=== PATIENT | male | born 1970 | race Caucasian/White ===

== ENCOUNTER 2016-12-15 21:57 | Emergency (ER) | payer MEDICARE, MEDICAID ==
[2016-12-15] MEDS ORDERED: oxyCODONE HCL/ACETAMINOPHEN 1 TAB TABLET PO ONE (22:40)
--- NOTE | 2016-12-15 22:41 | ERNOTE ---
Allergy Symptoms - ER Presenting Symptoms: skin rash, itching Time Seen by Provider: 12/15/16 22:30 Source: patient, snf records Immunizations: IMMUNIZATION HX Immunizations Up to Date Yes History of Influenza Vaccine More Information Required Hx Pneumococcal Vaccination More Information Required Allergies/Adverse Reactions: Allergies adhesive tape Allergy (Verified 02/24/16 06:26) carbamazepine [From Tegretol] Allergy (Verified 02/24/16 06:26) cephalexin monohydrate [From Keflex] Allergy (Verified 02/24/16 06:26) codeine Allergy (Verified 02/24/16 06:26) meperidine HCl [From Demerol] Allergy (Verified 02/24/16 06:26) shrimp Allergy (Verified 02/24/16 06:26) tape Allergy (Uncoded 02/24/16 06:26) Home Medications: HOME MEDICATIONS Albuterol Sulfate [Albuterol Sulfate 2.5 MG/0.5ML] 1 vial NEB Q1H PRN 02/03/16 [ Last Taken Unknown] Baclofen 20 mg PO TID 02/03/16 [Last Taken Unknown] Bupropion HCl [Wellbutrin Xl] 300 mg PO QAM 02/03/16 [Last Taken Unknown] Carvedilol [Coreg] 25 mg PO BID 02/03/16 [Last Taken Unknown] Chlorhexidine Gluconate [Chlorhexidine Gluconate 0.12%] 5 ml MM BID 02/03/16 [ Last Taken Unknown] Cyanocobalamin [Vitamin B-12] 2,000 mcg PO DAILY 02/03/16 [Last Taken Unknown] Docusate Sodium [Doc-Q-Lace] 100 mg PO BID 02/03/16 [Last Taken Unknown] Ferrous Sulfate 325 mg PO TID 02/03/16 [Last Taken Unknown] Finasteride [Proscar] 5 mg PO HS 02/03/16 [Last Taken Unknown] Furosemide [Lasix] 40 mg PO DAILY 02/03/16 [Last Taken Unknown] Lamotrigine [Lamictal Xr] 25 mg PO DAILY 02/03/16 [Last Taken Unknown] Lamotrigine [Lamictal Xr] 200 mg PO DAILY 02/03/16 [Last Taken Unknown] Levothyroxine Sodium [Synthroid] 50 mcg PO DAILY 02/03/16 [Last Taken Unknown] Lisinopril [Zestril] 5 mg PO DAILY 02/03/16 [Last Taken Unknown] Loratadine [Claritin] 10 mg PO DAILY 02/03/16 [Last Taken Unknown] Magnesium 500 mg PO HS 02/03/16 [Last Taken Unknown] Melatonin 6 mg PO DAILY 02/03/16 [Last Taken Unknown] Meloxicam [Mobic] 15 mg PO DAILY 02/03/16 [Last Taken Unknown] Pantoprazole Sodium [Protonix] 40 mg PO DAILY 02/03/16 [Last Taken Unknown] Paroxetine HCl [Paxil] 30 mg PO DAILY 02/03/16 [Last Taken Unknown] Phentermine HCl [Adipex-P] 37.5 mg PO DAILY 02/03/16 [Last Taken Unknown] Polyethylene Glycol 3350 [Gavilax] 17 gm PO DAILY 02/03/16 [Last Taken Unknown] Potassium Chloride [Klor-Con Sprinkle] 40 meq PO DAILY 02/03/16 [Last Taken Unknown] Pregabalin [Lyrica] 75 mg PO TID 02/03/16 [Last Taken Unknown] Tamsulosin HCl [Flomax] 0.8 mg PO HS 02/03/16 [Last Taken Unknown] Topiramate [Topamax] 25 mg PO BID 02/03/16 [Last Taken Unknown] busPIRone HCL [Buspar] 5 mg PO TID 02/03/16 [Last Taken Unknown] metFORMIN HCL [Glucophage Xr] 500 mg PO DAILY 02/03/16 [Last Taken Unknown] oxyCODONE HCL [Oxycodone] 10 mg PO Q4H 02/03/16 [Last Taken Unknown] traMADol HCL [Ultram] 50 mg PO Q6H PRN 02/03/16 [Last Taken Unknown] Acetylcysteine [Mucomyst 20%] 800 mg IH [id number] #28 vial 02/08/16 [Last Taken Unknown] Diazepam [Valium] 5 mg PO BID tablet 02/08/16 [Last Taken Unknown] Benzocaine/Menthol [Cepacol Sore Throat] 1 each MM PRN PRN 02/24/16 [Last Taken Unknown] Dextran 70/Hypromellose/Pf [Artificial Tears Drops] 2 each OP QID PRN 02/24/16 [ Last Taken Unknown] Guaifenesin [Mucinex] 600 mg PO DAILY 02/24/16 [Last Taken Unknown] - History of Present Illness Narrative: Patient had a fentanyl patch applied for chronic pain to his right shoulder two days ago. About one hour later he started to 'feel hot' and broke out in a rash. He received benadryl and epi that day with no significant improvement. He last received benadryl 25 mg around 15:00. After stopping the fentanyl he was restarted on his other pain medication. He has an extensive past medical history , has a trach and is on a ventilator at night, denies any shortness of breath, no vomiting. 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 Absent: throat swelling Respiratory: Present: See HPI. Absent: shortness of breath Cardiology: Present: See HPI Gastrointestinal/Abdominal: Present: See HPI Musculoskeletal: Present: back pain - chronic Skin: Present: See HPI Neurological: Absent: weakness, numbness - Patient's Past Medical History Patient History - Medical: Anemia, Anxiety, Bipolar, Chronic Pain, Diabetes Type 2, Depression, GERD, Hypothyroidism, Obesity, Osteoarthritis, Renal Failure , Other - Paranoid schizophrenia; dependence to supplemental oxygen; umbilical hernia; insomnia; seasonal allergies; BPH Patient History - Cardiac/Respiratory: Hypertension, Hyperlipidemia Patient History - Cancer: No Hx of Cancer Patient History - Surgical Procedures: Appendectomy, Cholecystectomy, Other - Tracheostomy; Hernia repair; Right AKA Patient History - Other: None - Family History Mother Family History - Medical: Family History - Cardiac/Respiratory: History Unknown - Social History Living Situations: snf Abuse History: No History of abuse Psych History: Hx of Anxiety, Hx of Depression, Hx of Bipolar Disorder, Hx of Schizophrenia Alcohol Use: none Drug Use: none - Immunizations Immunizations Up to Date: Yes Hx Pneumococcal Vaccination: More Information Required to Determine History of Influenza Vaccine: More Information Required to Determine Physical Exam - Physical Exam General Appearance: Present: wd/wn, alert, no apparent distress, anxious, obese Eye Exam: Normal inspection: bilateral, PERRL: bilateral Ears, Nose, Throat: Present: normal ENT inspection, normal pharynx Respiratory: Present: no respiratory distress, normal breath sounds, no accessory muscle use, lungs clear Cardiovascular/Chest: Present: regular rate, rhythm, no murmur Gastrointestinal/Abdominal: Present: nontender, nondistended, soft Neurological Exam: Present: alert, oriented, normal mood/affect Skin Exam: Present: normal color, warm/dry, other - face flushed and flushed appearance of upper chest and arms ED Progress - Vital Signs Patient's Vital Signs:: I have reviewed the patient's vital signs. Vital Signs: Vital Signs 12/15/16 22:00 Temperature 36.9 C Pulse Rate 71 Respiratory 13 Rate Blood Pressure 120/75 O2 Sat by Pulse 100 Oximetry - Progress/Reassessment Chief Complaint: Allergic Reaction Progress Note-Subjective: 12/16/16 00:26 Patient feeling a little better, less flushed Departure Clinical Impression: Allergic reaction caused by a drug Qualifiers: Encounter type: initial encounter Qualified Code(s): T78.40XA - Allergy, unspecified, initial encounter - Departure Disposition: [facility] Condition: Good Referrals: Carolyn Regan DO [Primary Care Provider] -
[2016-12-15] MEDS ORDERED: oxyCODONE HCL/ACETAMINOPHEN 1 TAB TABLET ONE (23:01)
[2016-12-15] MEDS ORDERED: diphenhydrAMINE HCL 50 MG CAPSULE PO ONE ×2 (23:10→23:47)
[2016-12-16 01:45] VITALS: BP 134/68
== END 2016-12-16 01:10 ==
LOC: ER 21:57
DX: T78.40XA Allergy, unspecified, initial encounter (principal); F32.9 Major depressive disorder, single episode, unspecified; I10 Essential (primary) hypertension; Z99.81 Dependence on supplemental oxygen

== ENCOUNTER 2017-06-16 12:00 | Emergency (ER) | payer MEDICARE, MEDICAID ==
[2017-06-16 12:00] VITALS: BP 134/68
--- NOTE | 2017-06-16 12:22 | ERNOTE ---
Cardiopulmonary Resuscitation Presenting Symptoms: collapsed Time Seen by Provider: 06/16/17 12:07 Source: EMS Exam Limitations: clinical condition Immunizations: IMMUNIZATION HX Immunizations Up to Date Yes History of Influenza Vaccine More Information Required Hx Pneumococcal Vaccination More Information Required Allergies/Adverse Reactions: Allergies adhesive tape Allergy (Verified 06/16/17 12:01) carbamazepine [From Tegretol] Allergy (Verified 06/16/17 12:01) cephalexin monohydrate [From Keflex] Allergy (Verified 06/16/17 12:01) codeine Allergy (Verified 06/16/17 12:01) meperidine HCl [From Demerol] Allergy (Verified 06/16/17 12:01) shrimp Allergy (Verified 06/16/17 12:01) tape Allergy (Uncoded 06/16/17 12:01) Home Medications: HOME MEDICATIONS Albuterol Sulfate [Albuterol Sulfate 2.5 MG/0.5ML] 1 vial NEB Q1H PRN 02/03/16 [ Last Taken Unknown] Baclofen 20 mg PO TID 02/03/16 [Last Taken Unknown] Bupropion HCl [Wellbutrin Xl] 300 mg PO QAM 02/03/16 [Last Taken Unknown] Carvedilol [Coreg] 25 mg PO BID 02/03/16 [Last Taken Unknown] Chlorhexidine Gluconate [Chlorhexidine Gluconate 0.12%] 5 ml MM BID 02/03/16 [ Last Taken Unknown] Cyanocobalamin [Vitamin B-12] 2,000 mcg PO DAILY 02/03/16 [Last Taken Unknown] Docusate Sodium [Doc-Q-Lace] 100 mg PO BID 02/03/16 [Last Taken Unknown] Ferrous Sulfate 325 mg PO TID 02/03/16 [Last Taken Unknown] Finasteride [Proscar] 5 mg PO HS 02/03/16 [Last Taken Unknown] Furosemide [Lasix] 40 mg PO DAILY 02/03/16 [Last Taken Unknown] Levothyroxine Sodium [Synthroid] 50 mcg PO DAILY 02/03/16 [Last Taken Unknown] Lisinopril [Zestril] 5 mg PO DAILY 02/03/16 [Last Taken Unknown] Loratadine [Claritin] 10 mg PO DAILY 02/03/16 [Last Taken Unknown] Magnesium 500 mg PO HS 02/03/16 [Last Taken Unknown] Melatonin 6 mg PO DAILY 02/03/16 [Last Taken Unknown] Meloxicam [Mobic] 15 mg PO DAILY 02/03/16 [Last Taken Unknown] PARoxetine HCL [Paxil] 30 mg PO DAILY 02/03/16 [Last Taken Unknown] Pantoprazole Sodium [Protonix] 40 mg PO DAILY 02/03/16 [Last Taken Unknown] Phentermine HCl [Adipex-P] 37.5 mg PO DAILY 02/03/16 [Last Taken Unknown] Polyethylene Glycol 3350 [Gavilax] 17 gm PO DAILY 02/03/16 [Last Taken Unknown] Potassium Chloride [Klor-Con Sprinkle] 40 meq PO DAILY 02/03/16 [Last Taken Unknown] Pregabalin [Lyrica] 75 mg PO TID 02/03/16 [Last Taken Unknown] Tamsulosin HCl [Flomax] 0.8 mg PO HS 02/03/16 [Last Taken Unknown] Topiramate [Topamax] 25 mg PO BID 02/03/16 [Last Taken Unknown] busPIRone HCL [Buspar] 5 mg PO TID 02/03/16 [Last Taken Unknown] lamoTRIgine [Lamictal Xr] 25 mg PO DAILY 02/03/16 [Last Taken Unknown] lamoTRIgine [Lamictal Xr] 200 mg PO DAILY 02/03/16 [Last Taken Unknown] metFORMIN HCL [Glucophage Xr] 500 mg PO DAILY 02/03/16 [Last Taken Unknown] oxyCODONE HCL [Oxycodone] 10 mg PO Q4H 02/03/16 [Last Taken Unknown] traMADol HCL [Ultram] 50 mg PO Q6H PRN 02/03/16 [Last Taken Unknown] Acetylcysteine [Mucomyst 20%] 800 mg IH [id number] #28 vial 02/08/16 [Last Taken Unknown] Diazepam [Valium] 5 mg PO BID tablet 02/08/16 [Last Taken Unknown] Benzocaine/Menthol [Cepacol Sore Throat] 1 each MM PRN PRN 02/24/16 [Last Taken Unknown] Dextran 70/Hypromellose/Pf [Artificial Tears Drops] 2 each OP QID PRN 02/24/16 [ Last Taken Unknown] guaiFENesin [Mucinex] 600 mg PO DAILY 02/24/16 [Last Taken Unknown] Narrative: Patient was at the [facility] and went unresponsive. Both at [facility] and with the [facility] ambulance service a pulse was not able to be obtained and the patient was without spontaneous respirations. Patient remained unresponsive the entire time they were on the way in and on bedside ultrasound was found to have an absent of any heart activity. Patient was declared at 12: 02 PM. 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 Code Timing: Present: still present Review of Systems - Narrative Narrative: We are unable to obtain a review of systems due to the unresponsive, blue status the patient - Patient's Past Medical History Patient History - Medical: Anemia, Anxiety, Bipolar, Chronic Pain, Diabetes Type 2, Depression, GERD, Hypothyroidism, Obesity, Osteoarthritis, Renal Failure , Other Patient History - Cardiac/Respiratory: Hypertension, Hyperlipidemia Patient History - Cancer: No Hx of Cancer Patient History - Surgical Procedures: Appendectomy, Cholecystectomy, Other Patient History - Other: None - Family History Mother Family History - Medical: Family History - Cardiac/Respiratory: History Unknown - Social History Living Situations: fdc Abuse History: No History of abuse Psych History: Hx of Anxiety, Hx of Depression, Hx of Bipolar Disorder, Hx of Schizophrenia Alcohol Use: none Drug Use: none - Immunizations Immunizations Up to Date: Yes Hx Pneumococcal Vaccination: More Information Required to Determine History of Influenza Vaccine: More Information Required to Determine Physical Exam - Physical Exam Narrative: Patient remained completely unresponsive for approximately 25 minutes" blue. Patient remained without heart rate, pulse or spontaneous respirations. A bedside ultrasound was undertaken and patient was found to not have any cardiac activity of any kind. General Appearance: Present: wd/wn, alert, no apparent distress Eye Exam: Normal inspection: bilateral, PERRL: bilateral Ears, Nose, Throat: Present: normal ENT inspection, H, normal pharynx Neck: Present: normal inspection, nontender Respiratory: Present: no respiratory distress, normal breath sounds, no accessory muscle use, chest nontender, lungs clear Cardiovascular/Chest: Present: regular rate, rhythm, no murmur, normal peripheral pulses Gastrointestinal/Abdominal: Present: normal bowel sounds, nontender, nondistended, soft, no organomegaly Rectal Exam: Present: deferred Back Exam: Present: normal inspection, normal range of motion Extremity Exam: Present: normal inspection, non-tender, no edema, normal range of motion Neurological Exam: Present: alert, oriented, normal mood/affect Skin Exam: Present: normal color, warm/dry Lymphatic Exam: Present: no adenopathy ED Progress - Progress/Reassessment Chief Complaint: Code Blue Plan - Plan Plan: Patient had a profound medical history so a post-mortem examination I suspect is unnecessary. Departure Clinical Impression: Cardiac arrest - Departure Disposition:
== END 2017-06-16 14:27 | disposition expired ==
LOC: ER 12:00
PROC: 5A12012 Performance of Cardiac Output, Single, Manual (ICD-10-PCS; principal; 2017-06-16)
DX: I46.9 Cardiac arrest, cause unspecified (principal); D64.9 Anemia, unspecified; F41.8 Other specified anxiety disorders; F31.70 Bipolar disorder, currently in remission, most recent episode unspecified; G89.29 Other chronic pain; E11.9 Type 2 diabetes mellitus without complications; K21.9 Gastro-esophageal reflux disease without esophagitis; E03.9 Hypothyroidism, unspecified; M19.90 Unspecified osteoarthritis, unspecified site; I10 Essential (primary) hypertension; E78.5 Hyperlipidemia, unspecified; N19 Unspecified kidney failure